=== PATIENT | female | born 1990 | race Caucasian/White ===

== ENCOUNTER 2021-07-11 16:25 | Emergency (ER) | payer BC, SELFPAY ==
--- NOTE | 2021-07-11 16:34 | ED.GENADULT ---
HPI - General Adult General Chief complaint: Unspecified Stated complaint: rt side pain Time Seen by Provider: 07/11/21 16:40 Source: patient and RN notes reviewed Mode of arrival: ambulatory Limitations: no limitations History of Present Illness HPI narrative: 31-year-old female presents with concern for right upper quadrant abdominal pain. She reports pain has been increasing over a period of 6 days. She reports when pain began she did not have pain at rest and would have short spikes of pain. She reports it is progressed to a constant mild pain in the right upper quadrant with more frequent and longer lasting spikes of pain. She reports the periods of pain are lasting longer and longer. She reports mild nausea without vomiting. Denies diarrhea or constipation. She denies increasing pain with deep breathing or coughing. She reports pain radiating to the right shoulder blade. Reports she called her primary care doctor but is unable to be seen until the end of the month. MD complaint: Abdominal pain Related Data Home Medications Medication Instructions Recorded Confirmed famotidine 20 mg PO DAILY 07/11/21 07/11/21 Allergies Allergy/AdvReac Type Severity Reaction Status Date / Time Penicillins Allergy Hives Verified 07/11/21 16:48 Sulfa (Sulfonamide Allergy Hives Verified 07/11/21 16:48 Antibiotics) Review of Systems Review of Systems: CONSTITUTIONAL: Denies malaise, chills, sweats, or fever. CARDIOVASCULAR: Denies chest pain, palpitations, or edema. RESPIRATORY: Denies cough or dyspnea. GASTROINTESTINAL: Reports colicky right upper quadrant abdominal pain, nausea. Denies vomiting, diarrhea, bloody, or mucous stools. GENITOURINARY: Denies dysuria or hematuria. SKIN: Denies rash or itching. MUSCULOSKELETAL: Denies back pain, joint pain, or myalgia. All systems reviewed & are unremarkable except as noted in HPI and below PMFSH Comments At time of signature, agree with nursing past medical, surgical, social and family history. There is no relevant family history pertinent to the presenting complaint Exam Narrative: GENERAL: Well-appearing, well-nourished, and in no acute distress. HEAD: Normocephalic, atraumatic. EYES: PERRLA, conjunctivae clear, and EOMI. ENT: Nares clear. Mucous membranes moist. NECK: Supple. No lymphadenopathy CHEST: Speaks in full sentences. No respiratory distress. HEART: Regular rate and rhythm. ABDOMEN: Soft, obese, nondistended. No guarding, rebound tenderness, or rigid. Mild right upper quadrant tenderness. No pulsatilla masses. Bowel sounds present in all four quadrants. Negative Chavez's sign. No periumbilical tenderness. No Supra public tenderness or distension. Good femoral pulses bilaterally. No hernia noted. No scars or surface trauma. SKIN: Warm, dry, no rash. NEURO: Alert and oriented x3. PSYCH: Normal mood and affect Course Course Emergency Course: Discussed with patient need for further evaluation for possible cholecystitis, cholelithiasis. Offered transfer to ED today, which patient does not choose to do. Patient reports she cannot see her primary care until the end of the month. Patient offered referral to GI for more prompt evaluation. Patient is aware of, understands and agrees to treatment plan. Anticipatory guidance given. Patient agrees to follow-up as directed and is aware of reasons to seek care at the emergency department. Portions of this record may have been created with voice recognition software Level of Care: Express Care Visit Vital Signs Vital signs: Reviewed. Medical Decision Making MDM Narrative Medical decision making narrative: No evidence of pancreatitis, AAA, cholangitis, mesenteric ischemia, small bowel obstruction, diverticulitis, colitis, appendicitis, or pelvic etiology such as ovarian, TOA, or ectopic . Patient has no history of peptic ulcer, H. pylori, chronic aspirin NSAID or corticosteroid use, chronic alcohol us
[2021-07-11 16:40] VITALS: BP 141/92; PULSE 100; RESP 18; TEMP 37.3; O2SAT 100
== END 2021-07-11 17:08 | disposition home or self-care (01) ==
PROVIDERS: Emergency Provider Nurse Practitioner
DX: R10.11 Right upper quadrant pain (principal); K21.9 Gastro-esophageal reflux disease without esophagitis
CPT/HCPCS: 99203; G0463

== ENCOUNTER 2021-07-27 11:02 | Outpatient (CLI) | payer BC, SELFPAY ==
--- NOTE | ~2021-07-27 | US_ITS ---
EXAMINATION: US abdomen limited EXAM DATE: 07/27/2021 11:42 INDICATION: Right Sided Abd Pain. TECHNIQUE: Multiple grayscale and Doppler images of the abdomen right upper quadrant were obtained (b y a technologist who performed the scan) and subsequently reviewed. There is no prior study for colin joy. FINDINGS: The pancreatic head and body are normal in appearance. The pancreatic tail is not visualized. The l iver has normal echogenicity and contour. There are no focal liver lesions identified. There is no evidence of intrahepatic biliary duct dilation. Portal venous flow was seen in the hepatopedal, nor mal direction and has normal Doppler waveform. No right-sided hydronephrosis. Common bile duct measures 3 mm, which is normal. The gallbladder wall is normal in thickness, with ex pected amount of distention. No sonographic evidence of pericholecystic fluid. There is no cholelit hiases. Technologist performing exam reports patient did not demonstrate sonographic Chavez's sign. Please note that this sign is less reliable in patients who have received pain medication. IMPRESSION: 1. Unremarkable abdominal ultrasound exam. Reviewed, dictated and finalized at location G.
== END 2021-07-27 11:03 | disposition home or self-care (01) ==
LOC: ANHIMG 11:05
PROVIDERS: PCP Internal Medicine; Visit Provider Internal Medicine
DX: R10.9 Unspecified abdominal pain (principal)
CPT/HCPCS: 76705

== ENCOUNTER 2025-02-01 21:59 | Emergency (ER) | payer BC, SELFPAY ==
[2025-02-01 22:05] VITALS: BP 180/94; PULSE 98; RESP 18; TEMP 36.6; O2SAT 99
--- OUTSIDE RECORDS SUMMARY | 2025-02-02 00:38 | XMS_ITS | Encounter Summary ---
Author Organization [facility] Address [address] [place] [address] Care Team Providers Care Mail Distribution Clerk Name Role Phone Desire Dai MD Primary Care Provider [phone] Encounter Details Date Type Department Care Team (Late Contact Info) Description 08/24/2021 [employer] Message Enc [address] [place] [address] Mychart, [facility] Provider test results Social History Tobacco Use Types Packs/Day Years Used Date Smoking Tobacco: Never Smokeless Tobacco: Never Comments:counseled by Dr Alayna sutton Alcohol Use Standard Drinks/Week Comments Not Currently 0 (1 standard drink = 0.6 oz pur e alcohol) PHQ-2 Answer Date Recorded PHQ-2 Score - If the patient scores above 3, please move on to questions 3-9 2 08/21/2021 Comments No Sex and Gender Information Value Date Recorded Sex Assigned at Female 07/12/2024 8:15 AM CDT Legal Sex Female 7:54 PM CDT Gender Identity Female 07/12/2024 8:15 AM CDT Sexual Orientation Straight 07/12/2024 8: 15 AM CDT COVID-19 Exposure Response Date Recorded In the last 10 days, have yo u been in contact with someone who was confirmed or suspected to have Coronavirus/COVID-19? No / Unsure 08/20/2021 11:58 AM CDT documented as of this encounter Plan of Treatment Upcoming Encounters Date Type Department Care Team (Late Contact Info) Description 02/14/2025 4:20 PM CDT [facility] [address] [address] [place] [address] Desire Dai MD [address] [place] [address] documented as of this encounter Visit Diagnoses Not on filedocumented in this encounter Additional Health Concerns Infection Onset Date Last Indicated Resolved Time COVID-19 Rule Out 04/29/2024 04/29/2024 04/29/2024 9:52 AM FISHING ROD TRIMMER COVID-19 Rule Out 05/20/2024 05/20/2024 05/20/2024 11:17 AM FISHING ROD TRIMMER COVID-19 Confirmed 05/20/2024 05/20/2024 12:32 AM FISHING ROD TRIMMER Assessment Noted Time PHQ-9 Depression Total Score: 11 022 8:46 AM CDT documented as of this encounter Care Teams Mail Distribution Clerk Relationship Specialty Start Date End Date Desire Dai MD [address] [place] [address] PCP - General INTERNAL MEDICINE 07/19/21 documented as of this encounter
--- OUTSIDE RECORDS SUMMARY | 2025-02-02 00:38 | XMS_ITS | Encounter Summary ---
Author Organization [facility] Address [address] [place] [address] Care Team Providers Care Bowling Pin Setters Installer Name Role Phone Desire Dai MD Primary Care Provider [phone] Encounter Details Date Type Department Care Team (Late st Contact Info) Description 09/25/2023 [employer] Message Enc [facility] [address] [place] [address] Mychart, [facility] Provider Lab results Social History Tobacco Use Types Packs/Day Years Used Date Smoking Tobacco: Never Smokeless Tobacco: Never Comments:counseled by Dr Alayna sutton Alcohol Use Standard Drinks/Week Comments Not Currently 0 (1 standard drink = 0.6 oz pur e alcohol) AUDIT-C Answer Date Recorded Q1: How often do you have a drink containing alcohol? Never 09/19/2023 Q2: How many drinks containi ng alcohol do you have on a typical day when you are drinking? Patient does not drink Q3: How often do you have si x or more drinks on one occasion? Never 09/19/2023 PHQ-2 Answer Date Recorded Patient Health Questionnaire-2 Score 3 09/19/2023 Comments No Sex and Gender Information Value Date Recorded Sex Assigned at Female 07/12/2024 8:15 AM CDT Legal Sex Female 7:54 PM CDT Gender Identity Female 07/12/2024 8:15 AM CDT Sexual Orientation Straight 07/12/2024 8: 15 AM CDT documented as of this encounter Plan of Treatment Upcoming Encounters Date Type Department Care Team (Late st Contact Info) Description 02/14/2025 4:20 PM CDT Office Visit [facility] - [place] [address] [address] [place] [address] Desire Dai MD [facility] [address] [address] documented as of this encounter Visit Diagnoses Not on filedocumented in this encounter Additional Health Concerns Infection Onset Date Last Indicated Resolved Time COVID-19 Rule Out 04/29/2024 04/29/2024 04/29/2024 9:52 AM ASPARAGUS CUTTER COVID-19 Rule Out 05/20/2024 05/20/2024 05/20/2024 11:17 AM ASPARAGUS CUTTER COVID-19 Confirmed 05/20/2024 05/20/2024 12:32 AM ASPARAGUS CUTTER Assessment Noted Time PHQ-9 Depression Total Score: 13 024 4:22 PM CDT documented as of this encounter Care Teams Bowling Pin Setters Installer Relationship Specialty Start Date End Date Desire Dai MD [address] [place] [address] PCP - General INTERNAL MEDICINE 07/19/21 documented as of this encounter
--- OUTSIDE RECORDS SUMMARY | 2025-02-02 00:38 | XMS_ITS | Encounter Summary ---
Author Organization [facility] Address [address] [place] [address] Care Team Providers Care Ichthyologist Name Role Phone Desire Dai MD Primary Care Provider [phone] Encounter Details Date Type Department Care Team (Latest Contact Info) Description 10/02/2021 [employer] Message Enc [facility] [place] [address] [place] [address] [address] [place] [address] [place] [address] [place] [address] [place], [place] [id number] medication change Social History Tobacco Use Types Packs/Day Years Used Date Smoking Tobacco: Never Smokeless Tobacco: Never Comments:counseled by Dr Alayna sutton Alcohol Use Standard Drinks/Week Comments Not Currently 0 (1 standard drink = 0.6 oz pur e alcohol) PHQ-2 Answer Date Recorded PHQ-2 Score - If the patient scores above 3, please move on to questions 3-9 2 10/02/2021 Comments No Sex and Gender Information Value [...] suspected to have Coronavirus/COVID-19? No / Unsure 10/02/2021 7:58 AM CDT documented as of this encounter Functional Status * Calculated C-SSRS Risk Score (Lifetime/Recent) Answer Date of Assessment Author Status No Risk Indicated 10/02/2021 4:32 PM CDT Desire Dai MD Active * [place] Suicide Severity Rating Scale (Screener/Recent Self-Report) Question Answer Date of Assessment Author Status 1. Wish to be (Past 1 Month) No 10/02/2021 4:32 PM CDT Desire Dai MD Active 2. Non-Specific Active Suici linda Thoughts (Past 1 Month) No 10/02/2021 4:32 PM CDT Desire Dai MD Active 6. Suicidal Behavior (Lifetime) No 10/02/2021 4:32 PM CDT Desire Dai MD Active documented as of this encounter Plan of Treatment Upcoming Encounters Date Type Department Care Team (Late st Contact Info) Description 02/14/2025 4:20 PM CDT Office Visit [facility] [place] [address] [address] [place] [address] Desire Dai MD [address] [place] [address] documented as of this encounter Visit Diagnoses Not on filedocumented in this encounter Additional Health Concerns Infection Onset Date Last Indicated Resolved Time COVID-19 Rule Out 04/29/2024 04/29/2024 04/29/2024 9:52 AM FERRY PILOT COVID-19 Rule Out 05/20/2024 05/20/2024 05/20/2024 11:17 AM FERRY PILOT COVID-19 Confirmed 05/20/2024 05/20/2024 12:32 AM FERRY PILOT Assessment Noted Time PHQ-9 Depression Total Score: 11 022 8:46 AM CDT documented as of this encounter Care Teams Ichthyologist Relationship Specialty Start Date End Date Desire Dai MD [address] [place] [address] PCP - General INTERNAL MEDICINE 07/19/21 documented as of this encounter
--- OUTSIDE RECORDS SUMMARY | 2025-02-02 00:38 | XMS_ITS | Encounter Summary ---
Author Organization [facility] Address [address] [place] [address] Care Team Providers Care Irrigator Valve Pipe Name Role Phone Desire Dai MD Primary Care Provider [phone] Encounter Details Date Type Department Care Team (Late st Contact Info) Description 03/12/2022 [employer] Message Enc [facility] - [address] [place] [address] [employer], [facility] Provider Test results Social History Tobacco Use Types Packs/Day Years Used Date Smoking Tobacco: Never Smokeless Tobacco: Never Comments:counseled by Dr Alayna sutton Alcohol Use Standard Drinks/Week Comments Not Currently 0 (1 standard drink = 0.6 oz pur e alcohol) PHQ-2 Answer Date Recorded PHQ-2 Score - If the patient scores above 3, please move on to questions 3-9 2 03/12/2022 Comments No Sex and Gender Information Value [...] suspected to have Coronavirus/COVID-19? No / Unsure 03/12/2022 8:03 AM ENVIRONMENTAL STUDIES PROFESSOR documented as of this encounter Functional Status * Calculated C-SSRS Risk Score (Lifetime/Recent) Answer Date of Assessment Author Status No Risk Indicated 03/12/2022 8:33 AM ENVIRONMENTAL STUDIES PROFESSOR Desire Dai MD Active * [place] Suicide Severity Rating Scale (Screener/Recent Self-Report) Question Answer Date of Assessment Author Status 1. Wish to be (Past 1 Month) No 03/12/2022 8:33 AM Desire Aguirre MD Active 2. Non-Specific Active Suici linda Thoughts (Past 1 Month) No 03/12/2022 8:33 AM Desire Aguirre MD Active 6. Suicidal Behavior (Lifetime) No 03/12/2022 8:33 AM Desire Aguirre MD Active documented as of this encounter Plan of Treatment Upcoming Encounters Date Type Department Care Team (Late st Contact Info) Description 02/14/2025 4:20 PM CDT Office Visit [facility] - [place] [address] [address] [place] [address] Desire Dai MD [address] [facility] [address] [place] [address] documented as of this encounter Visit Diagnoses Not on filedocumented in this encounter Additional Health Concerns Infection Onset Date Last Indicated Resolved Time COVID-19 Rule Out 04/29/2024 04/29/2024 04/29/2024 9:52 AM ENVIRONMENTAL STUDIES PROFESSOR COVID-19 Rule Out 05/20/2024 05/20/2024 05/20/2024 11:17 AM ENVIRONMENTAL STUDIES PROFESSOR COVID-19 Confirmed 05/20/2024 05/20/2024 12:32 AM ENVIRONMENTAL STUDIES PROFESSOR Assessment Noted Time PHQ-9 Depression Total Score: 5 11/07/19 22 9:22 AM CDT documented as of this encounter Care Teams Irrigator Valve Pipe Relationship Specialty [place] [address] [place] [address] [address] [place] [address] PCP - General INTERNAL MEDICINE 07/19/21 documented as of this encounter
--- OUTSIDE RECORDS SUMMARY | 2025-02-02 00:38 | XMS_ITS | Encounter Summary ---
Author Organization [facility] Address [address] [place] [address] Care Team Providers Care Motorcycle Builder Name Role Phone Desire Dai MD Primary Care Provider [phone] Encounter Details Date Type Department Care Team (Late Contact Info) Description 11/23/2021 [employer] Message Enc [address] [place] [address] Abbie, [facility] Provider medication Social History Tobacco Use Types Packs/Day Years Used Date Smoking Tobacco: Never Smokeless Tobacco: Never Comments:counseled by Dr Alayna sutton Alcohol Use Standard Drinks/Week Comments Not Currently 0 (1 standard drink = 0.6 oz pur e alcohol) PHQ-2 Answer Date Recorded PHQ-2 Score - If the patient scores above 3, please move on to questions 3-9 1 11/06/2021 Comments No Sex and Gender Information Value [...] suspected to have Coronavirus/COVID-19? No / Unsure 11/06/2021 8:44 AM CDT documented as of this encounter Plan of Treatment Upcoming Encounters Date Type Department Care Team (Late Contact Info) Description 02/14/2025 4:20 PM CDT [facility] [place] [address] [address] [place] [address] [place] [address] [place] [address] documented as of this encounter Visit Diagnoses Not on filedocumented in this encounter Additional Health Concerns Infection Onset Date Last Indicated Resolved Time COVID-19 Rule Out 04/29/2024 04/29/2024 04/29/2024 9:52 AM ART GLASS SETTER COVID-19 Rule Out 05/20/2024 05/20/2024 05/20/2024 11:17 AM ART GLASS SETTER COVID-19 Confirmed 05/20/2024 05/20/2024 12:32 AM ART GLASS SETTER Assessment Noted Time PHQ-9 Depression Total Score: 5 11/07/19 9:22 AM CDT documented as of this encounter Care Teams Motorcycle Builder Relationship Specialty Start Date End Date Desire Dai MD [address] [place] [address] PCP - General INTERNAL MEDICINE 07/19/21 documented as of this encounter
--- OUTSIDE RECORDS SUMMARY | 2025-02-02 00:39 | XMS_ITS | Clinical Summary ---
Author Organization [facility] Address [facility] [place] [address] Care Team Providers Care Wool Cleaner Name Role Phone Desire Dai MD Primary Care Provider [phone] Allergies Active Allergy Reactions Criticality Noted Date Comments Amphetamine-Dextroamphetam ine Other (see comment) 07/19/2022 GI symptoms Amoxicillin Hives,Rash Low 08/12/2006 Escitalopram Palpitations Low 08/21/2021 Penicillins Hives 03/18/2015 Methylphenidate Headache 09/19/2023 Sulfa Antibiotics Throat swelling,Hives 015 Bupropion Headache 09/19/2023 Medications ciclopirox (LOPROX) 0.77 % creamIndications:O nychomycosis Apply topically 2 (two) times daily. 90 g 1 4 Active atomoxetine (STRATTERA) 40 MG capsuleIndications :Attention deficit hyperactivity disorder (ADHD), predominantly inattentive type Take 1 capsule (40 mg total) by mouth daily. 90 capsule 1 5 Active rizatriptan (MAXALT-GRADE SETTER) 10 MG disintegrating tabletIndications: Intractable migraine with aura with status migrainosus Take 1 tablet (10 mg total) by mouth as needed for Migraine. May repeat in 2 hours if needed times one dose 8 tablet 5 5 Active metoprolol succinate ER (TOPROL-XL) 25 MG 24 hr tabletIndications: Intractable migraine with aura with status migrainosus,Primar y hypertension Take 1 tablet (25 mg total) by mouth daily. 90 tablet 1 5 Active levothyroxine (SYNTHROID) 200 MCG tabletIndications: Acquired hypothyroidism Take 1 tablet (200 mcg total) by mouth every morning. 90 tablet 1 5 Active Fremanezumab-vfrm (AJOVY) 225 MG/1.5ML Solution Auto-injectorIndic ations:Intractable migraine with aura with status migrainosus Inject 225 mg into the skin every 30 (thirty) days. 1.5 mL 3 5 Active ferrous sulfate, 65 mg elemental, 325 (65 FE) MG tabletIndications: Low mean corpuscular volume (MCV) Take 1 tablet (325 mg total) by mouth daily with breakfast. 90 tablet 3 5 Active famotidine (PEPCID) 20 MG tabletIndications: Gastroesophageal reflux disease without esophagitis Take 1 tablet (20 mg total) by mouth 2 (two) times daily. 180 tablet 1 5 Active busPIRone (BUSPAR) 30 MG tabletIndications: LADONNA (generalized anxiety disorder) Take 1 tablet (30 mg total) by mouth 2 (two) times daily. 180 tablet 1 5 Active ondansetron (ZOFRAN) 4 MG tabletIndications: Intractable migraine with aura with status migrainosus Take 1 tablet (4 mg total) by mouth every 8 (eight) hours as needed. 90 tablet 5 Active venlafaxine XR (EFFEXOR-XR) 150 MG 24 hr capsuleIndications :LADONNA (generalized anxiety disorder),Mild episode of recurrent major depressive disorder Take 1 capsule (150 mg total) by mouth daily. 90 capsule 5 02/15/20 25 Active Active Problems Problem Noted Date Diagnosed Date Attention deficit hyperactiv ity disorder (ADHD), predominantly inattentive type 02/13/2022 Prediabetes 12/19/2021 Acquired hypothyroidism 08/21/2021 LADONNA (generalized anxiety disorder) 07/19/2021 Episode of recurrent major depressive disorder 0 07/19/2021 Overview (07/19/2021): Currently not on any medications. Started on sertraline with close follow-up. May need to see a therapist. Assessment & Plan (07/19/2021 11:49 AM CDT): Currently uncontrolled. No suicidal ideations at this time. Started on sertraline with close follow-up. May need to see therapy. Acid reflux 03/18/2015 Encounters Date Type Department Care Team Description 11/15/2024 Isis Message [facility] Patient Accounts [place] [address] Isis [facility] Provider Auto Payment Declined from Last 3 Months Immunizations Immunization Administration Dates Next Due Dtap (Generic) 09/04/1995, 2,1990,1990 ,1990 Hepatitis B 09/05/2000,04/23/2000,03/30/2000 Hib Vaccine, Prp-Omp 07/02/1991 MMR (Generic) 09/04/1995,07/02/1991 Meningococcal Vac A,C,Y,W-135 Sc 11/24/2008,01/04 Opv 09/04/1995, 2,1990,1990 ,1990 Td 12/07/2004 Tdap (Adacel) 07/19/2021 Family History Medical History Relation Comments Mental Health Brother Diverticulitis Father Ovarian Cancer Maternal great-grandmother Cancer Mother Skin cancer on n ose Colon Cancer Mother Mental Health Mother Diverticulitis Paternal Grandfather Mental Health Paternal Grandmother Vision loss Paternal Grandmother Relation Status Comments Brother Father Maternal Grandmother Maternal great-grandmother Mother Alive Paternal Grandfather Paternal Grandmother Alive Social History Tobacco Use Types Packs/Day Years Used Date Smoking Tobacco: Never Passive Smoke Exposure: Never Smokeless Tobacco: Never Tobacco Cessation:Counseling Given: Yes Comments:counseled by Dr Dai Alcohol Use Standard Drinks/Week Comments Not Currently [...] Date Recorded Patient Health Questionnaire-2 Score 3 09/28/2024 Comments No Sex and Gender Information Value Date Recorded Sex Assigned at Female 07/12/2024 8:15 AM CDT Legal Sex Female 7:54 PM CDT Gender Identity Female 07/12/2024 8:15 AM CDT Sexual Orientation Straight 07/12/2024 8: 15 AM CDT Last Filed Vital Signs Vital Sign Reading Time Taken Comments Blood Pressure 130/80 09/28/2024 11:04 AM CDT Pulse 89 09/28/2024 10:55 AM CDT Temperature 36.6 C (97.9 F) 09/28/2024 10:55 AM CDT Respiratory Rate 18 09/28/2024 10:5 5 AM CDT Oxygen Saturation 97% 09/28/2024 10: 55 AM CDT Inhaled Oxygen Concentration - - Weight 164.4 kg (362 lb 6.4 oz) 025 10:55 AM CDT Height 175.3 cm (5' 9) 09/28/2024 10:5 5 AM CDT Body Mass Index 53.52 09/28/2024 10:55 AM CDT Plan of Treatment Upcoming Encounters Date Type Department Care Team (Late st Contact Info) Description 02/14/2025 4:20 PM CDT Office Visit [facility] Multispecialty Care - [place] [address] [address] [place] [address] Desire Dai MD [address] [place] [address] Health Maintenance Due Date Last Done Comments Pneumococcal Vaccine: Pediatrics (0 to 5 Years) and At-Risk Patients (6 to 49 Years) (1 of 2 - PCV) 2009 HPV Vaccines (1 - 3-dose SCDM series) 2017 Cervical Cancer Screening Pap Smear (Age 30 to 64) Every 3 Years 12/19/2024 12/19/2021 COVID-19 Vaccine ( season) 2025 Annual Physical 09/28/2025 09/28/2024, 09/02, 07/19/2022, Additional history exists Cervical Cancer Screening Pap with HPV Testing (Age 30 to 64) Every 5 Years 12/19/2026 12/19/2021 Cervical Cancer Screening with HPV 12/19/2026 DTaP, Tdap and Td Vaccines (7 - Td or Tdap) 07/20/2031 07/19/2021, 12/07/2004, 09/04/1995, Additional history exists Hepatitis B Vaccines Completed 09/05/2000, 04/23/2000, 03/30/2000 Meningococcal Vaccine Aged Out 11/24/2008, 990 No longer eligible based on patient's age to complete this topic Hepatitis C Completed 07/19/2021 PHQ-2 (Physician [place]) Completed 09/28/2024 Meningococcal B Vaccine Aged Out No l onger eligible based on patient's age to complete this topic RSV Immunizations Under 20 Months Aged Out No longer eligible based on patient's age to complete this topic Procedures Procedure Name Priority Date/Time Associated Diagnosis Comments HUMAN PAPILLOMAVIRUS, HIGH-RISK TYPES Routine 12/19/2021 12:00 PM CDT CYTOPATH CERV/VAG THIN LAYER Routine 12/19/2021 7:13 AM CDT HEPATITIS C ANTIBODY Routine 07/19/2021 9:48 AM CDT Annual physical exam Encounter for medical examination to establish care General medical exam Encounter for hepatitis C screening test for low risk patient from Last 3 Months or Most Recently Relevant to Health Maintenance Results * HUMAN PAPILLOMAVIRUS, HIGH-RISK TYPES (12/19/2021 12:00 PM CDT) SPEC DESCRIPTION CERVICAL/END OCERVICAL 12/20/2021 8:15 AM CDT [facility] HPV DNA HIGH RISK NEGATIVE NEGATIVE 12/21/2021 4:08 PM CDT [facility] Comment:SEE CYTOLOGY REPORT 12/19/2021 12:0 0 PM CDT Desire Dai MD PATHOLOGY/CYTOLOGY ORDERABLES Fi nal Result [facility] [address] [place] [address], * Cytopath Cerv/Vag Thin Layer (12/19/2021 7:13 AM CDT) THIN PREP PAP [facility] [address] [place] [address] Department of Pathology Pathology Report CERVICAL/VAGINAL PAP SMEAR REPORT Name: DAMARIS OLSON Age: 9 1990 (Age: 31) Location: [facility] Sex: F Collected Date: 12/19/2021 [facility] #: [id number] Date Received: 12/20/2021 Date Reported: 12/25/2021 Provider: DESIRE DAI MD INTERPRETATION CERVICAL/ENDOCERVI KATHRINE: SATISFACTORY FOR EVALUATION. ENDOCERVICAL/TRANS FORMATION ZONE COMPONENT ABSENT. NEGATIVE FOR INTRAEPITHELIAL LESION OR MALIGNANCY. NEGATIVE FOR HIGH RISK HPV. The FDA approved Aptima HPV assay is an in vitro nucleic acid amplification test for the qualitative detection of E6/E7 viral messenger RNA (mRNA) from 14 high-risk types of human papillomavirus (HPV) in cervical specimens. The high-risk HPV types detected by the assay include: 16,18,31,33,35,39, 45,51,52,56,58,59, 66, and 68. Electronically Signed Out By BELLA Betancourt (ASCP) CLINICAL HISTORY SCREENING PAP TEST Z12.4 ThinPrep Pap Test with HR HPV testing in patient > 30 years requested. Date of Last Menstrual Period: NOVEMBER 2021 Menstrual Status: Regular SPECIMEN SUBMITTED CERVICAL/ENDOCERVI KATHRINE Specimen Received:1 Thin Prep Vial, Image Assisted Pap (SMD) Please note: The Pap smear is not a diagnostic test. It is a screening test. Negative results on combined screening (Pap test and HPV-DNA) have a high negative predictive value (99.1-100 percent) for cervical cancer. The pap test is not effective in detecting cervical adenocarcinoma. [facility] 12/19/2021 7:13 AM CDT 12/20/2021 7:13 AM CDT Comment:CERVICAL/ENDOCERVICA L Desire Dai MD PATHOLOGY/CYTOLOGY ORDERABLES Fi nal Result [facility] [address] [place] [address], [place] [phone] * HEPATITIS C ANTIBODY (07/19/2021 9:48 AM CDT) HEPATITIS C AB NON-REACTI VE NON-REACT PSIKE 07/19/2021 6:34 PM CDT [facility] Comment: ANTIBODIES TO HCV NOT DETECTED. DOES NOT EXCLUDE THE POSSIBILITY OF EXPOSURE TO HCV. 07/19/2021 9:48 AM CDT Desire Dai MD LABORATORY Final Result Performing Organization Address City/[facility] Co de Phone Number [facility] [address] [place] [address], [place] [phone] from Last 3 Months or Most Recently Relevant to Health Maintenance Insurance Care Teams Wool Cleaner Relationship Specialty Start Date End Date Desire Dai MD [facility] [address] [place] [address] (work) PCP - General INTERNAL MEDICINE 07/19/21
--- OUTSIDE RECORDS SUMMARY | 2025-02-02 00:39 | XMS_ITS | Encounter Summary ---
Author Organization [facility] Address [address] [place] [address] Care Team Providers Care Spinner Open End Name Role Phone Desire Dai MD Primary Care Provider [phone] Encounter Details Date Type Department Care Team (Late Contact Info) Description 08/05/2024 Roll20 Message [facility] [address] [place] [address] Abbie [facility] Provider Action Needed Social History Tobacco Use Types Packs/Day Years Used Date Smoking Tobacco: Never Passive Smoke Exposure: Never Smokeless Tobacco: Never Comments:counseled by Dr [...] Answer Date Recorded Patient Health Questionnaire-2 Score 2 05/20/2024 Comments No Sex and Gender Information Value [...] Description 02/14/2025 4:20 PM CDT [facility] Mult[facility]ty [address] [place] [address] Desire Dai MD [facility] [address] [address] documented as of this encounter Visit Diagnoses Not on filedocumented in this encounter Additional Health Concerns Assessment Noted Time PHQ-9 Depression Total Score: 7 05/20/19 25 9:56 AM BOILER TESTING TECHNICIAN documented as of this encounter Care Teams Spinner Open End Relationship Specialty Start Date End Date Desire Dai MD [address] [place] [address] PCP - General INTERNAL MEDICINE 07/19/21 documented as of this encounter
--- OUTSIDE RECORDS SUMMARY | 2025-02-02 00:39 | XMS_ITS | Clinical Summary ---
Author Organization [facility] Care Team Providers Care Gusset Ripper Name Role Phone Unavailable Primary Care Provider Unavailabl e Social History Tobacco Use Types Packs/Day Years Used Date Smoking Tobacco: Never Assessed Comments Unknown Sex and Gender Information Value Date Recorded Sex Assigned at Not on file Legal Sex Female 8:35 AM CDT Gender Identity Not on file Sexual Orientation Not on file Plan of Treatment Health Maintenance Due Date Last Done Comments Hepatitis C Virus (HCV) Screening 1990 TdaP Immunization 1990 Pap Smear 2011 Human Papillomavirus (HPV) Immunization (1 - 3-dose SCDM series) 2017 Cervical Cancer Screening (CCS) 01/25/2020 HPV/Cotest 01/25/2020 Influenza Immunization (#1) 2025 SARS-COV-2 Immunization ( season) 2025 Respiratory Syncytial Virus (RSV) Immunization (Adult) (1 - 1-dose 75+ series) 2065 DTaP/Tdap/Td Immunization Discontinued 1995, 11/11/1991, 1990, Additional history exists Hepatitis B Immunization Completed 001, 04/23/2000, 03/30/2000 Meningococcal Immunization (ACWY) Aged Out No longer eligible based on patient's age to complete this topic Pneumococcal Immunization Combined Aged Out No longer eligible based on patient's age to complete this topic Rotavirus Immunization Aged Out No lo nger eligible based on patient's age to complete this topic
--- OUTSIDE RECORDS SUMMARY | 2025-02-02 00:39 | XMS_ITS | Encounter Summary ---
Author Organization [facility] Address [address] [place] [address] Care Team Providers Care Home Care Specialist Name Role Phone Desire Dai MD Primary Care Provider [phone] Encounter Details Date Type Department Care Team (Late Contact Info) Description 12/08/2023 Qufenqi Message Enc [facility] Medical Group Multispecialty Care - [address] [place] [address] Mychart, [facility] Provider reschedule appt Social History Tobacco Use Types Packs/Day Years [...] Description 02/14/2025 4:20 PM CDT Office Visit [facility] Multispecialty Care - [place] [address] [address] [place] [address] Desire Dai MD [facility] [address] [address] documented as of this encounter Visit Diagnoses Not on filedocumented in this encounter Additional Health Concerns Infection Onset Date Last Indicated Resolved Time COVID-19 Rule Out 04/29/2024 04/29/2024 04/29/2024 9:52 AM WHALE TRAINER COVID-19 Rule Out 05/20/2024 05/20/2024 05/20/2024 11:17 AM WHALE TRAINER COVID-19 Confirmed 05/20/2024 05/20/2024 12:32 AM WHALE TRAINER Assessment Noted Time PHQ-9 Depression Total Score: 13 024 4:22 PM CDT documented as of this encounter Care Teams Home Care Specialist Relationship Specialty Start Date End Date Desire Dai MD [address] [place] [address] PCP - General INTERNAL MEDICINE 07/19/21 documented as of this encounter
--- OUTSIDE RECORDS SUMMARY | 2025-02-02 00:39 | XMS_ITS | Encounter Summary ---
Author Organization [facility] Address [address] [place] [address] Care Team Providers Care Doughnut Batter Mixer Name Role Phone Desire Dai MD Primary Care Provider [phone] Encounter Details Date Type Department Care Team (Late st Contact Info) Description 11/15/[address] [facility] [facility] Patient Accounts [address] [place] [address] [facility] Provider Auto Payment Declined Social History Tobacco Use Types Packs/Day Years [...] Description 02/14/2025 4:20 PM CDT Office Visit [facility] Multispecialty Care - [address] [place] [address] Desire Dai MD [address] [place] [address] documented as of this encounter Visit Diagnoses Not on filedocumented in this encounter Additional Health Concerns Assessment Noted Time PHQ-9 Depression Total Score: 11 025 12:01 PM CDT documented as of this encounter Care Teams Doughnut Batter Mixer Relationship Specialty Start Date End Date Desire Dai MD [address] [place] [address] PCP - General INTERNAL MEDICINE 07/19/21 documented as of this encounter
--- OUTSIDE RECORDS SUMMARY | 2025-02-02 00:39 | XMS_ITS | Clinical Summary ---
Author Organization [facility] Address [address] [facility] [place] [address] Care Team Providers Care Mechanic Insulator Name Role Phone Unavailable Primary Care Provider Unavailabl e Source Comments [facility],non-owned Affiliates and Associated Physician Practices is amultiple site organization consisting of ambulatory clinics and hospital sitesin [place], [place], [place] and [place]. This disclosure is being madepursuant to the Care Everywhere program and may not contain all information available regarding this patient. Last updated 18.[facility] Acquisition Social History Tobacco Use Types Packs/Day Years Used Date Smoking Tobacco: Never Assessed Comments Unknown Sex and Gender Information Value Date Recorded Sex Assigned at Not on file Legal Sex Female 11:01 AM CDT Gender Identity Not on file Sexual Orientation Not on file Last Filed Vital Signs Vital Sign Reading Time Taken Comments Blood Pressure 132/86 10/09/2018 2:31 PM CDT Pulse 85 10/09/2018 2:31 PM CDT Temperature 36.9 C (98.4 F) 10/09/2018 2:31 PM CDT Respiratory Rate 16 10/09/2018 2:31 PM CDT Oxygen Saturation 98% 10/09/2018 2:31 PM CDT Inhaled Oxygen Concentration - - Weight 127 kg (280 lb) 10/09/2018 2:31 PM CDT Height 176.5 cm (5' 9.5) 10/09/2018 2:31 PM CDT Body Mass Index 40.76 10/09/2018 2:31 PM CDT Plan of Treatment Health Maintenance Due Date Last Done Comments HIV SCREENING 2005 HEPATITIS C SCREENING 01/20/2008 DTAP/TDAP/TD VACCINES (1 - Tdap) 2009 HEPATITIS B VACCINE (1 of 3 - 19+ 3-dose series) 2009 HPV VACCINE (1 - 3-dose SCDM series) 2017 DEPRESSION SCREENING 05/05/2024 COVID-19 VACCINE ( - 2023-2 5 season) 2025 INFLUENZA VACCINE (#1) 2025 ZOSTER VACCINE (1 of 2) 01/25/2040 HIB VACCINE Aged Out No longer eligi ble based on patient's age to complete this topic MENINGOCOCCAL (Group B) VACC INE SHARED DECISION-MAKING Aged Out No longer eligibl e based on patient's age to complete this topic MENINGOCOCCAL GROUPS A/C/Y/W VACCINE Aged Out No longer eligible b ased on patient's age to complete this topic PNEUMOCOCCAL VACCINE Aged Out No long er eligible based on patient's age to complete this topic Insurance [facility]LY [facility], [facility]
--- OUTSIDE RECORDS SUMMARY | 2025-02-02 00:39 | XMS_ITS | Encounter Summary ---
Author Organization [facility] Address [address] [place] [address] Care Team Providers Care Editor Continuity And Script Name Role Phone Desire Dai MD Primary Care Provider [phone] Encounter Details Date Type Department Care Team (Late Contact Info) Description 08/09/2024 Digify Message Care IT Business Office [address] [place] [address] [facility] Provider Action Needed Social History Tobacco Use [...] Description 02/14/2025 4:20 PM CDT Office Visit [facility] Medical Group Multispecialty [address] [place] [address] Desire Dai MD [facility] [address] documented as of this encounter Visit Diagnoses Not on filedocumented in this encounter Additional Health Concerns Assessment Noted Time PHQ-9 Depression Total Score: 7 05/20/19 25 9:56 AM WASTE HANDLING TECHNICIAN documented as of this encounter Care Teams Editor Continuity And Script Relationship Specialty Start Date End Date Desire Dai MD [address] [place] [address] PCP - General INTERNAL MEDICINE 07/19/21 documented as of this encounter
--- OUTSIDE RECORDS SUMMARY | 2025-02-02 00:39 | XMS_ITS | Encounter Summary ---
Author Organization [facility] Address [address] [place] [address] Care Team Providers Care Brick Layer Name Role Phone Desire Dai MD Primary Care Provider [phone] Encounter Details Date Type Department Care Team (Late st Contact Info) Description 12/07/2001 Abstract [facility] Conversion Md, Generic Conversion, Social History Tobacco Use Types Packs/Day Years [...] Description 02/14/2025 4:20 PM CDT Office Visit [facility] Group Multispecialty Care [place] [address] [address] [place] [address] Desire Dai MD [address] [place] [address] documented as of this encounter Visit Diagnoses Not on filedocumented in this encounter Additional Health Concerns Infection Onset Date Last Indicated Resolved Time COVID-19 Rule Out 04/29/2024 04/29/2024 04/29/2024 9:52 AM POWER WASHER COVID-19 Rule Out 05/20/2024 05/20/2024 05/20/2024 11:17 AM POWER WASHER COVID-19 Confirmed 05/20/2024 05/20/2024 5 12:32 AM POWER WASHER documented as of this encounter Care Teams Brick Layer Relationship Specialty Start Date End Date Desire Dai MD [address] [address] PCP - General INTERNAL MEDICINE 07/19/21 documented as of this encounter
--- OUTSIDE RECORDS SUMMARY | 2025-02-02 00:39 | XMS_ITS | Encounter Summary ---
Author Organization [facility] Address [address] [place] [address] Care Team Providers Care Shot Hole Shooter Name Role Phone Desire Dai MD Primary Care Provider [phone] Encounter Details Date Type Department Care Team (Late st Contact Info) Description 07/12/2024 Noninvasive Medical Technologiest Message Enc [facility] Multispecialty Care - [place] [address] [address] [address] [place] [address] Desire Dai MD [address] [place] [address] [address] [place] [address] BP numbers Social History Tobacco Use Types Packs/Day Years [...] Description 02/14/2025 4:20 PM CDT Office Visit [facility] Multispecialty Care - [place] [address] [address] [address] [place] [address] Desire Dai MD [address] [place] [address] documented as of this encounter Visit Diagnoses Not on filedocumented in this encounter Additional Health Concerns Assessment Noted Time PHQ-9 Depression Total Score: 7 05/20/19 25 9:56 AM TELESALES REPRESENTATIVE documented as of this encounter Care Teams Shot Hole Shooter Relationship Specialty Start Date End Date Desire Dai MD [address] [place] [address] PCP - General INTERNAL MEDICINE 07/19/21 documented as of this encounter
[2025-02-02] MEDS: RABIES IMMUNE GLOBULIN/PF 1,500 UNITS/5 ML VIAL 3000 UNITS IM (01:14)
[2025-02-02] MEDS: RABIES VACCINE (RABAVERT) 2.5 UNITS VIAL IM (02:15)
--- NOTE | 2025-02-02 07:37 | ED.ANIMALBIT ---
HPI - Animal Bite General Chief Complaint: Animal Bite Stated Complaint: cat bite Time Seen by Provider: 02/02/25 00:25 History of Present Illness HPI narrative: 35-year-old female presenting with a cat bite to her left thumb. 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 Patient denies any symptoms but does have a punctate wound to her left thumb. No other symptoms. Occurred about an hour prior to arrival. Patient has no systemic symptoms or any bleeding. No pain. Related Data Home Medications ?Medication ?Instructions ?Recorded ?Confirmed ?Last Taken ?Type famotidine 20 mg tablet 20 mg PO DAILY 07/11/21 07/11/21 Unknown History Allergies Allergy/AdvReac Type Severity Reaction Status Date / Time Penicillins Allergy Hives Verified 07/11/21 16:48 Sulfa (Sulfonamide Allergy Hives Verified 07/11/21 16:48 Antibiotics) Exam Narrative: GENERAL: [Well-appearing, well-nourished, and in no acute distress.] HEAD: [Normocephalic, atraumatic.] EYES: [PERRLA and EOMI.] ENT: Nares clear, no rhinorrhea or epistaxis. Mucous membranes moist. NECK: Supple. CHEST: [Clear to auscultation. No respiratory distress.] HEART: Regular rate and rhythm ABDOMEN: Soft and nondistended EXTREMITIES: Single punctate milo over the left thumb, no bleeding or purulence. No pain with palpation. SKIN: Warm, dry, no rash. NEURO: [No focal deficits]. Alert and oriented [x3.] PSYCH: [Normal mood and affect.] Course Vital Signs Vital signs: Vital Signs Temperature 36.6 C 02/01/25 22:05 Pulse Rate 98 02/01/25 22:05 Respiratory Rate 18 02/01/25 22:05 Blood Pressure 180/94 H 02/01/25 22:05 Pulse Oximetry 99 02/01/25 22:05 Oxygen Delivery Room Air 02/01/25 22:05 Temperature 36.6 C 02/01/25 22:05 Pulse Rate 98 02/01/25 22:05 Respiratory Rate 18 02/01/25 22:05 Blood Pressure 180/94 H 02/01/25 22:05 Pulse Oximetry 99 02/01/25 22:05 Oxygen Delivery Room Air 02/01/25 22:05 MDM - Animal Bite MDM Narrative Medical decision making narrative: 35-year-old female presenting with a cat bite to her left thumb. 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 Patient denies any symptoms but does have a punctate wound to her left thumb. No other symptoms. Occurred about an hour prior to arrival. Patient has no systemic symptoms or any bleeding. No pain. Patient given 1st dose of rabies vaccine and immunoglobulin with the 1st portion injected into the location of the wound. Remaining went into the contralateral deltoid of the vaccine. I discussed this with the Infectious Disease coordinator and given that the animal is being put down to be tested for rabies she does not necessarily need to remaining vaccine series but given the prescription in case there is a delay in obtaining the biopsy results and testing of the rabies. Patient was given Bactrim and safe for discharge with prescriptions. Medical Records Attestation: I reviewed the patient's medical records. Discharge Plan Discharge Clinical Impression: Rabies contact, Cat bite Patient Disposition: Home Condition: Stable Instructions: Antibiotic Form, Animal Bite (ED), Rabies (ED) Additional Instructions: Follow-up for rabies injections on day 3, 7, 14. Take the antibiotics for next 2 weeks. Tylenol and ibuprofen for fever chills. Return with any emergent concerns. Patient Language: Qatari Prescriptions: New doxycycline hyclate 100 mg capsule 100 mg PO BID 14 Days Qty: 28 0RF No Action famotidine 20 mg Tablet 20 mg PO DAILY hydrocodone-acetaminophen 5-325 mg tablet 1 tablet PO Q6H PRN (Reason: pain) Qty: 14 0RF ondansetron 4 mg tablet,disintegrating 4 mg PO Q8H PRN (Reason: nausea and vomiting) Qty: 10 0RF Follow-up/Referrals: Suhas,MD Desire [Primary Care Provider, Unknown] Time of Disposition: 00:44
== END 2025-02-02 01:30 | disposition home or self-care (01) ==
PROVIDERS: Emergency Provider Student in an Organized Health Care Education/Training Program; PCP Internal Medicine
DX: S61.052A Open bite of left thumb without damage to nail, initial encounter (principal); Z20.3 Contact with and (suspected) exposure to rabies; Z29.14 Encounter for prophylactic rabies immune globulin; Z23 Encounter for immunization; W55.01XA Bitten by cat, initial encounter
CPT/HCPCS: 90375; 90471; 90472; 90675; 96372; 99283